=== PATIENT | female | born 1955 | race Two or more races ===

== ENCOUNTER 2021-09-18 16:15 | Emergency (ER) | payer MEDICARE, OTHER ==
[~2021-09-18] VITALS: Ht 162.6 cm; Wt 86.2 kg
[2021-09-18] MEDS ORDERED: KETOROLAC TROMETH 60MG/2ML VIAL IM ONE (18:00)
[2021-09-18 18:06] VITALS: BP 106/85
== END 2021-09-18 21:37 | disposition home or self-care (01) ==
LOC: ER 16:15
DX: M25.462 Effusion, left knee (principal); I10 Essential (primary) hypertension; E11.9 Type 2 diabetes mellitus without complications
CPT/HCPCS: 73562; 93971; 96372; 99284; J1885